=== PATIENT | female | born 1945 | race Caucasian/White ===

== ENCOUNTER 2017-04-20 08:07 | Emergency (ER) | payer OTHER ==
[~2017-04-20] VITALS: Ht 152.4 cm; Wt 79.5 kg
[~2017-04-20 08:07] MED LIST: ADVAIR 250/501 DISK IH; ALBUTEROL; ALPRAZOLAM0.25 MG PO; AMLODIPINE BESY10 MG PO; AMLODIPINE BESYL5 MG PO; AMOXICILLIN500 MG PO; ARTIFICIAL TEAR15 M1 BOTH EYES; ARTIFICIAL TEAR15 M4 BOTH EYES; ARTIFICIAL TEAR15 M6 BOTH EYES; ARTIFICIAL TEARS BOTH EYES; ASPIR-LOW81 MG PO; ASPIRIN E.C.81 M1 PO; ASPIRIN81 M1 PO; AUGMENTIN875 MG PO; AZITHROMYCIN500 M1 PO; BABY ASPIRIN81 M1 PO; BENTYL20 MG PO; CLEOCIN300 MG PO; CLINDAMYCIN HC300 MG PO; COLACE100 MG PO; COZAAR25 MG PO; Colace PO; DEXPAK1.5 M2 PO; DILAUDID4 MG PO; Ecotrin PO; FLOVENT 22120 INHALA; FLOVENT 22120 INHALA IH; Flexeril PO; Flovent 220 mcg IH; GLIPIZIDE5 MG PO; GLUCOPHAGE1000 MG PO; GLUCOTROL5 MG PO; GLYBURIDE MICRON6 MG PO; LANTUS 3 M100 UNITS/ PO; LANTUS 3 M100 UNITS/ SC; LANTUS 3 M100 UNITS1 SC; LEVEMIR FL100 UNIT/1 SC; LEVEMIR FL100 UNITS/ SC; LEVEMIR100 UNIT/2 SC; LO-DOSE ASPIRIN81 M2 PO; LOTRISONE15 GM TP; LOW DOSE ASPIRI81 M2 PO; MOTRIN100 MG PO; NEXIUM20 MG; NEXIUM20 MG PO; NEXIUM40 MG PO; NORVASC10 MG PO; NORVASC5 MG PO; NOVOLOG 10100 UNITS/ SC; NOVOLOG MI100 UNIT/2 SC; NOVOLOG MI100 UNIT/2 SQ; NOVOLOG PE100 UNITS/ SC; OMEPRAZOLE40 M1 PO; Oscal 500 w/Vitamin PO; PREDNISONE10 MG PO; PREDNISONE20 MG PO; PREDNISONE50 MG PO; PRESERVISIO1 CAPSULE PO; PRESERVISION A1 EAC1; PRESERVISION A1 EACH PO; PRESERVISION S1 EACH PO; PRILOSEC40 MG PO; PROAIR HFA8.5 GM IH; PROVENTIL,2.5 MG/3 M IH; Proventil,Ventolin H IH; SEREVENT DISKU50 MCG; SEREVENT DISKU50 MCG IH; SIMVASTATIN40 MG PO; SINGULAIR10 MG PO; STOOL SOFTENER100 MG PO; STOOL SOFTENER50 MG PO; Singulair PO; THEO-DUR,THEOC200 MG PO; TRAMADOL HCL50 MG PO; TYLENOL REGULA325 MG PO; VASOTEC2.5 MG PO; VENTOLIN HFA18 GM; VENTOLIN HFA18 GM IH; XANAX0.125 MG PO; XANAX0.25 MG PO; ZESTRIL,PRINIVIL5 MG PO; ZITHROMAX Z-PA250 MG PO; ZOCOR20 MG PO; ZOCOR40 MG PO; Zocor PO; predniSONE PO
[2017-04-20 08:59] LABS: HEMATOCRIT 43.2 % (36.0-46.0); MCH 25.7 PG (29.0-34.0); MCHC 31.5 G/DL (30.0-36.0); MCV 81.7 FL (83-99); MEAN PLAT.VOLUME 9.1 uM^3 (9.5-12.4); PLATELET COUNT 287 K/uL (156-360); RBC DIS.WIDTH-CV 14.5 % (11.8-14.6); RBC DIS.WIDTH-SD 42.9 % (39-53); RED BLOOD COUNT 5.29 M/uL (3.80-5.20); WHITE BLOOD COUNT 7.1 K/uL (4.1-10.2)
[2017-04-20 09:09] LABS: CHLORIDE 101 mEq/L (99-109); POTASSIUM 4.3 mEq/L (3.7-5.4); SODIUM 137 mEq/L (136-147)
[2017-04-20 09:11] LABS: GLUCOSE 241 mg/dL (70-99)
[2017-04-20 09:12] LABS: ANION GAP 9 MEQ/L (2-14)
[2017-04-20 09:15] LABS: GFR ESTIMATE (CALCULATED) > 59 mL/min/
[2017-04-20 09:16] LABS: UREA NITROGEN (BUN) 11 mg/dL (9-23)
[2017-04-20] MEDS ORDERED: MUCUS ER600 MG PO (10:42)
[2017-04-20] MEDS ORDERED: ZYRTEC10 M3 PO (10:42)
[2017-04-20] MEDS ORDERED: ROBITUSSIN DM118 ML PO (10:42)
[2017-04-20 11:02] VITALS: BP 133/50
== END 2017-04-20 11:03 | disposition home or self-care (01) ==
LOC: EME 08:07
PROVIDERS: Nurse Practitioner Family
DX: R51 Headache (principal); J45.909 Unspecified asthma, uncomplicated; E11.65 Type 2 diabetes mellitus with hyperglycemia; J44.9 Chronic obstructive pulmonary disease, unspecified; I48.91 Unspecified atrial fibrillation; I50.9 Heart failure, unspecified; I10 Essential (primary) hypertension; K21.9 Gastro-esophageal reflux disease without esophagitis; F32.9 Major depressive disorder, single episode, unspecified; Z86.73 Personal history of transient ischemic attack (TIA), and cerebral infarction without residual deficits; I25.10 Atherosclerotic heart disease of native coronary artery without angina pectoris; Z85.118 Personal history of other malignant neoplasm of bronchus and lung; Z90.2 Acquired absence of lung [part of]; Z87.891 Personal history of nicotine dependence; Z79.4 Long term (current) use of insulin; Z79.82 Long term (current) use of aspirin
CPT/HCPCS: 71020; 80048; 85027; 93005; 94640; 99281; 99285; J1200; J1885; J2765; J7040

== ENCOUNTER 2017-10-28 09:41 | Emergency (ER) | payer OTHER ==
[~2017-10-28] VITALS: Ht 152.4 cm; Wt 79.0 kg
[~2017-10-28 09:41] MED LIST changes: +MUCUS ER600 MG PO; +ROBITUSSIN DM118 ML PO; +ZYRTEC10 M3 PO
[2017-10-28 10:20] LABS: HEMATOCRIT 41.8 % (36.0-46.0); MCH 26.6 PG (29.0-34.0); MCHC 32.5 G/DL (30.0-36.0); MCV 81.6 FL (83-99); MEAN PLAT.VOLUME 9.3 uM^3 (9.5-12.4); PLATELET COUNT 285 K/uL (156-360); RBC DIS.WIDTH-CV 14.1 % (11.8-14.6); RBC DIS.WIDTH-SD 41.5 % (39-53); RED BLOOD COUNT 5.12 M/uL (3.80-5.20); WHITE BLOOD COUNT 5.7 K/uL (4.1-10.2)
[2017-10-28 10:41] LABS: TROP-I INTERPRETATION NEGATIVE; TROPONIN-I < 0.01 ng/mL (0.0-0.30)
[2017-10-28 10:45] LABS: ANION GAP 10 MEQ/L (2-14); CHLORIDE 102 MEQ/L (99-109); POTASSIUM 3.3 MEQ/L (3.7-5.4); SAMPLE HEMOLYSIS CHECK 0; SAMPLE ICTERIC CHECK 0; SAMPLE LIPEMIA CHECK 0; SODIUM 140 MEQ/L (136-147)
[2017-10-28 10:50] LABS: GFR ESTIMATE (CALCULATED) > 59 mL/min/; GLUCOSE 118 mg/dL (70-99); UREA NITROGEN (BUN) 15 mg/dL (9-23)
[2017-10-28 11:34] LABS: ADD MIUA? YES; BILIRUBIN NEGATIVE; BLOOD NEGATIVE; COLOR YELLOW ((YELLOW)); GLUCOSE (STRIP) NEGATIVE; KETONES NEGATIVE; LEUKOCYTES MODERATE; NITRITE NEGATIVE; PROTEIN (STRIP) NEGATIVE; SPECIFIC GRAVITY 1.023 (1.000-1.030)
[2017-10-28 11:51] LABS: BACTERIA RARE /HPF; EPITHELIAL CELLS RARE /HPF; HYALINE CASTS 0-5 /LPF; MUCUS 1+ /LPF; RED BLOOD CELLS 0-5 /HPF (0-5); UCUL ADDED? YES; WHITE BLOOD CELLS TNTC /HPF (0-5)
[2017-10-28 15:00] LABS: TROP-I INTERPRETATION NEGATIVE; TROPONIN-I < 0.01 ng/mL (0.0-0.30)
[2017-10-28] MEDS ORDERED: KEFLEX500 MG PO (16:38)
[2017-10-28] MEDS ORDERED: PREDNISONE20 MG PO (16:38)
[2017-10-28] MEDS ORDERED: VENTOLIN HFA18 GM IH (16:54)
[2017-10-28 17:06] VITALS: BP 122/81
== END 2017-10-28 17:06 | disposition home or self-care (01) ==
LOC: EME 09:41
PROVIDERS: Emergency Medicine
DX: J44.1 Chronic obstructive pulmonary disease with (acute) exacerbation (principal); N39.0 Urinary tract infection, site not specified; R42 Dizziness and giddiness; R11.2 Nausea with vomiting, unspecified; R19.7 Diarrhea, unspecified; Z85.118 Personal history of other malignant neoplasm of bronchus and lung; Z86.73 Personal history of transient ischemic attack (TIA), and cerebral infarction without residual deficits; Z87.442 Personal history of urinary calculi; I10 Essential (primary) hypertension; E11.9 Type 2 diabetes mellitus without complications; Z79.4 Long term (current) use of insulin; Z79.82 Long term (current) use of aspirin; Z88.2 Allergy status to sulfonamides; Z88.1 Allergy status to other antibiotic agents; Z99.81 Dependence on supplemental oxygen; Z87.891 Personal history of nicotine dependence
CPT/HCPCS: 71020; 80048; 81003; 84484; 85027; 87077; 87086; 87186; 93005; 94640; 94640 76; 99281; 99285; J7030; J7512

== ENCOUNTER 2017-11-18 16:50 | Emergency (ER) | payer OTHER ==
[~2017-11-18] VITALS: Ht 152.4 cm; Wt 77.1 kg
[~2017-11-18 16:50] MED LIST changes: +KEFLEX500 MG PO
[2017-11-18 17:17] LABS: HEMATOCRIT 40.6 % (36.0-46.0); HEMOGLOBIN 13.2 G/DL (11.9-15.5); MCH 26.6 PG (29.0-34.0); MCHC 32.5 G/DL (30.0-36.0); MCV 81.7 FL (83-99); PLATELET COUNT 260 K/uL (156-360); RBC DIS.WIDTH-CV 14.2 % (11.8-14.6); RBC DIS.WIDTH-SD 41.8 % (39-53); RED BLOOD COUNT 4.97 M/uL (3.80-5.20); WHITE BLOOD COUNT 6.2 K/uL (4.1-10.2)
[2017-11-18 17:31] LABS: CHLORIDE 104 mEq/L (99-109); POTASSIUM 3.2 mEq/L (3.7-5.4); SODIUM 141 mEq/L (136-147)
[2017-11-18 17:33] LABS: GLUCOSE 171 mg/dL (70-99)
[2017-11-18 17:37] LABS: CREATININE 0.7 mg/dL (0.6-1.3); GFR ESTIMATE (CALCULATED) > 59 mL/min/
[2017-11-18 17:38] LABS: UREA NITROGEN (BUN) 14 mg/dL (9-23)
[2017-11-18 17:38] LABS: APPEARANCE CLEAR ((CLEAR)); BILIRUBIN NEGATIVE; BLOOD SMALL; COLOR YELLOW ((YELLOW)); GLUCOSE (STRIP) NEGATIVE; KETONES NEGATIVE; LEUKOCYTES LARGE; NITRITE NEGATIVE; PROTEIN (STRIP) NEGATIVE; SPECIFIC GRAVITY 1.009 (1.000-1.030); UROBILINOGEN 0.2 MG/DL (0.2-1.0)
[2017-11-18 17:43] LABS: BACTERIA 2+ /HPF; EPITHELIAL CELLS RARE /HPF; MUCUS TRACE /LPF; RED BLOOD CELLS NONE SEEN /HPF (0-5); UCUL ADDED? YES; WHITE BLOOD CELLS TNTC /HPF (0-5)
[2017-11-18] MEDS ORDERED: KEFLEX500 MG PO (20:02)
[2017-11-18 20:17] VITALS: BP 150/73
== END 2017-11-18 20:20 | disposition home or self-care (01) ==
LOC: EME 16:50
DX: N39.0 Urinary tract infection, site not specified (principal); B96.4 Proteus (mirabilis) (morganii) as the cause of diseases classified elsewhere; J44.9 Chronic obstructive pulmonary disease, unspecified; R11.2 Nausea with vomiting, unspecified; R19.7 Diarrhea, unspecified; I10 Essential (primary) hypertension; E11.9 Type 2 diabetes mellitus without complications; Z79.4 Long term (current) use of insulin; Z87.442 Personal history of urinary calculi; Z87.440 Personal history of urinary (tract) infections; Z88.1 Allergy status to other antibiotic agents; Z88.2 Allergy status to sulfonamides; Z85.118 Personal history of other malignant neoplasm of bronchus and lung; Z90.2 Acquired absence of lung [part of]; Z99.81 Dependence on supplemental oxygen; Z86.73 Personal history of transient ischemic attack (TIA), and cerebral infarction without residual deficits; Z79.82 Long term (current) use of aspirin; Z87.891 Personal history of nicotine dependence
CPT/HCPCS: 71046; 80048; 81003; 85027; 87077; 87086; 87186; 99281; 99283

== ENCOUNTER 2017-12-11 11:16 | Emergency (ER) | payer OTHER ==
[~2017-12-11] VITALS: Ht 152.4 cm; Wt 85.2 kg
[2017-12-11 12:18] LABS: BASOPHIL (%) 0.3 % (0-1); EOSINOPHIL (%) 0.7 % (0-5); EOSINOPHIL COUNT 0.1 K/uL (0-0.3); HEMATOCRIT 38.6 % (36.0-46.0); HEMOGLOBIN 12.6 G/DL (11.9-15.5); IMMATURE GRANULOCYTE (%) 0.3 % (0.0-0.7); LYMPHOCYTE COUNT 2.8 K/uL (1.0-2.8); MCH 26.5 PG (29.0-34.0); MCHC 32.6 G/DL (30.0-36.0); MCV 81.3 FL (83-99); MONOCYTE (%) 6.2 % (3-12); MONOCYTE COUNT 0.7 K/uL (0-0.8); NEUTROPHIL (%) 68.5 % (45-76); PLATELET COUNT 288 K/uL (156-360); RBC DIS.WIDTH-CV 14.1 % (11.8-14.6); RBC DIS.WIDTH-SD 41.5 % (39-53); RED BLOOD COUNT 4.75 M/uL (3.80-5.20); WHITE BLOOD COUNT 11.7 K/uL (4.1-10.2)
[2017-12-11 12:28] LABS: CHLORIDE 105 mEq/L (99-109); POTASSIUM 3.1 mEq/L (3.7-5.4); SODIUM 139 mEq/L (136-147)
[2017-12-11 12:29] LABS: GLUCOSE 249 mg/dL (70-99)
[2017-12-11 12:33] LABS: CREATININE 0.7 mg/dL (0.6-1.3); GFR ESTIMATE (CALCULATED) > 59 mL/min/
[2017-12-11 12:34] LABS: UREA NITROGEN (BUN) 16 mg/dL (9-23)
[2017-12-11 12:39] LABS: TROP-I INTERPRETATION NEGATIVE; TROPONIN-I < 0.01 ng/mL (0.0-0.30)
[2017-12-11 14:33] LABS: TROP-I INTERPRETATION NEGATIVE; TROPONIN-I 0.01 ng/mL (0.0-0.30)
[2017-12-11] MEDS ORDERED: ZITHROMAX Z-PA250 MG PO (14:42)
[2017-12-11] MEDS ORDERED: PREDNISONE50 MG PO (14:42)
[2017-12-11 15:22] VITALS: BP 141/69
[2017-12-12] MEDS ORDERED: TRIMETHOPRIM100 MG PO (07:56)
[2017-12-12] MEDS ORDERED: OMEPRAZOLE40 M1 PO (09:45)
[2017-12-12] MEDS ORDERED: NOVOLOG 10100 UNITS/ SC (10:26)
== END 2017-12-11 15:37 | disposition home or self-care (01) ==
LOC: EME 11:16
PROVIDERS: Emergency Medicine
DX: J44.1 Chronic obstructive pulmonary disease with (acute) exacerbation (principal); J44.0 Chronic obstructive pulmonary disease with (acute) lower respiratory infection; J20.9 Acute bronchitis, unspecified; Z87.891 Personal history of nicotine dependence; Z88.7 Allergy status to serum and vaccine; Z88.1 Allergy status to other antibiotic agents; Z88.5 Allergy status to narcotic agent; Z88.2 Allergy status to sulfonamides; Z91.041 Radiographic dye allergy status; Z79.82 Long term (current) use of aspirin; Z99.81 Dependence on supplemental oxygen; I50.9 Heart failure, unspecified; I11.0 Hypertensive heart disease with heart failure; H35.30 Unspecified macular degeneration; Z86.73 Personal history of transient ischemic attack (TIA), and cerebral infarction without residual deficits; Z85.118 Personal history of other malignant neoplasm of bronchus and lung; K44.9 Diaphragmatic hernia without obstruction or gangrene; K21.9 Gastro-esophageal reflux disease without esophagitis; I25.10 Atherosclerotic heart disease of native coronary artery without angina pectoris; F41.9 Anxiety disorder, unspecified; F32.9 Major depressive disorder, single episode, unspecified
CPT/HCPCS: 71045; 80048; 84484; 85025; 87502; 93005; 94640; 99281; 99284; J2930

== ENCOUNTER 2017-12-11 22:32 | Inpatient (IN) | payer OTHER ==
[~2017-12-11] VITALS: Ht 152.4 cm; Wt 77.7 kg
[2017-12-12 00:57] LABS: BASOPHIL (%) 0.1 % (0-1); EOSINOPHIL (%) 0 % (0-5); HEMATOCRIT 40.3 % (36.0-46.0); HEMOGLOBIN 12.9 G/DL (11.9-15.5); IMMATURE GRANULOCYTE (%) 0.4 % (0.0-0.7); LYMPHOCYTE (%) 13.7 % (15-42); MCH 26.2 PG (29.0-34.0); MCV 81.7 FL (83-99); MONOCYTE (%) 0.5 % (3-12); NEUTROPHIL (%) 85.3 % (45-76); NEUTROPHIL COUNT 6.4 K/uL (1.8-6.4); PLATELET COUNT 326 K/uL (156-360); RBC DIS.WIDTH-CV 14.2 % (11.8-14.6); RBC DIS.WIDTH-SD 41.5 % (39-53); RED BLOOD COUNT 4.93 M/uL (3.80-5.20); WHITE BLOOD COUNT 7.5 K/uL (4.1-10.2)
[2017-12-12 01:04] LABS: CHLORIDE 102 mEq/L (99-109); POTASSIUM 3.5 mEq/L (3.7-5.4); SODIUM 136 mEq/L (136-147)
[2017-12-12 01:10] LABS: CREATININE 0.9 mg/dL (0.6-1.3); GFR ESTIMATE (CALCULATED) > 59 mL/min/
[2017-12-12 01:11] LABS: UREA NITROGEN (BUN) 15 mg/dL (9-23)
[2017-12-12 01:13] LABS: GLUCOSE 493 mg/dL (70-99)
[2017-12-12 01:17] LABS: TROP-I INTERPRETATION NEGATIVE; TROPONIN-I 0.02 ng/mL (0.0-0.30)
[2017-12-12 01:45] LABS: BASE EXCESS -7.7 mEq/L (-3 to +3); BICARBONATE 16.6 mEq/L (22-26); CARBOXY HGB 1.9 % (0-5); COMMENTS - BLOOD GASES C+A+; DEVICE NC; METHEMOGLOBIN 1.8 % (0-1.5); O2 FLOW 2 L/MIN; PCO2 30 mm Hg (35-45); PO2 103 mm Hg (80-100); SITE RR; pH 7.35 (7.35-7.45)
[2017-12-12 03:52] LABS: CHLORIDE 108 mEq/L (99-109); POTASSIUM 3.5 mEq/L (3.7-5.4); SODIUM 137 mEq/L (136-147)
[2017-12-12 03:54] LABS: GLUCOSE 341 mg/dL (70-99)
[2017-12-12 03:58] LABS: CREATININE 0.7 mg/dL (0.6-1.3); GFR ESTIMATE (CALCULATED) > 59 mL/min/
[2017-12-12 03:59] LABS: UREA NITROGEN (BUN) 11 mg/dL (9-23)
[2017-12-12] MEDS ORDERED: TRIMETHOPRIM100 MG PO (07:56)
[2017-12-12 08:49] VITALS: BP 147/67
[2017-12-12] MEDS ORDERED: OMEPRAZOLE40 M1 PO (09:45)
[2017-12-12] MEDS ORDERED: NOVOLOG 10100 UNITS/ SC (10:26)
[2017-12-12 10:45] LABS: BASOPHIL (%) 0.1 % (0-1); EOSINOPHIL (%) 0 % (0-5); HEMOGLOBIN 12.8 G/DL (11.9-15.5); IMMATURE GRANULOCYTE (%) 0.7 % (0.0-0.7); LYMPHOCYTE (%) 13.1 % (15-42); LYMPHOCYTE COUNT 1.8 K/uL (1.0-2.8); MCH 26.5 PG (29.0-34.0); MCV 82.8 FL (83-99); MONOCYTE (%) 3.3 % (3-12); MONOCYTE COUNT 0.4 K/uL (0-0.8); NEUTROPHIL (%) 82.8 % (45-76); PLATELET COUNT 308 K/uL (156-360); RBC DIS.WIDTH-CV 14.2 % (11.8-14.6); RBC DIS.WIDTH-SD 42.6 % (39-53); RED BLOOD COUNT 4.83 M/uL (3.80-5.20); WHITE BLOOD COUNT 13.3 K/uL (4.1-10.2)
[2017-12-12 11:07] LABS: CREATININE 0.5 MG/DL (0.6-1.3); GFR ESTIMATE (CALCULATED) > 59 mL/min/; GLUCOSE 325 mg/dL (70-99); SODIUM 137 MEQ/L (136-147); UREA NITROGEN (BUN) 9 mg/dL (9-23)
[2017-12-12 11:08] LABS: CHLORIDE 105 MEQ/L (99-109)
[2017-12-12 11:12] LABS: POTASSIUM 4.3 MEQ/L (3.7-5.4)
[2017-12-12 11:21] LABS: TROP-I INTERPRETATION NEGATIVE; TROPONIN-I 0.02 ng/mL (0.0-0.30)
[2017-12-12 12:19] VITALS: BP 143/66
[2017-12-12 16:23] VITALS: BP 142/66
[2017-12-12 16:29] LABS: TROP-I INTERPRETATION NEGATIVE; TROPONIN-I 0.02 ng/mL (0.0-0.30)
[2017-12-12 19:57] VITALS: BP 126/72
[2017-12-12 23:46] VITALS: BP 130/64
[2017-12-13 03:54] VITALS: BP 140/70
[2017-12-13 06:06] LABS: BASOPHIL (%) 0.1 % (0-1); EOSINOPHIL (%) 0.1 % (0-5); HEMATOCRIT 37.1 % (36.0-46.0); HEMOGLOBIN 11.7 G/DL (11.9-15.5); IMMATURE GRANULOCYTE (%) 0.7 % (0.0-0.7); LYMPHOCYTE (%) 32.1 % (15-42); LYMPHOCYTE COUNT 4.5 K/uL (1.0-2.8); MCH 26.2 PG (29.0-34.0); MCHC 31.5 G/DL (30.0-36.0); MONOCYTE (%) 5.2 % (3-12); MONOCYTE COUNT 0.7 K/uL (0-0.8); NEUTROPHIL (%) 61.8 % (45-76); NEUTROPHIL COUNT 8.6 K/uL (1.8-6.4); PLATELET COUNT 293 K/uL (156-360); RBC DIS.WIDTH-CV 14.4 % (11.8-14.6); RBC DIS.WIDTH-SD 43.4 % (39-53); RED BLOOD COUNT 4.47 M/uL (3.80-5.20); WHITE BLOOD COUNT 13.9 K/uL (4.1-10.2)
[2017-12-13 06:24] LABS: CHLORIDE 104 MEQ/L (99-109); CREATININE 0.5 MG/DL (0.6-1.3); GFR ESTIMATE (CALCULATED) > 59 mL/min/; GLUCOSE 166 mg/dL (70-99); POTASSIUM 4.5 MEQ/L (3.7-5.4); SODIUM 138 MEQ/L (136-147); UREA NITROGEN (BUN) 12 mg/dL (9-23)
[2017-12-13 08:44] VITALS: BP 150/77
[2017-12-13] MEDS ORDERED: NORVASC10 MG PO (11:59)
[2017-12-13] MEDS ORDERED: GLUCOTROL5 MG PO (12:00)
[2017-12-13] MEDS ORDERED: ZYRTEC10 M3 PO (12:04)
[2017-12-13] MEDS ORDERED: NOVOLOG PE100 UNITS/ SC (12:06)
[2017-12-13 16:34] VITALS: BP 146/68
[2017-12-14 00:23] VITALS: BP 137/72
[2017-12-14 08:00] VITALS: BP 159/88
[2017-12-14 16:17] VITALS: BP 143/68
[2017-12-14 23:13] VITALS: BP 134/61
[2017-12-15 07:53] VITALS: BP 146/85
[2017-12-15 10:13] LABS: BASOPHIL (%) 0.3 % (0-1); EOSINOPHIL (%) 0.8 % (0-5); EOSINOPHIL COUNT 0.1 K/uL (0-0.3); HEMATOCRIT 44.5 % (36.0-46.0); HEMOGLOBIN 14.6 G/DL (11.9-15.5); IMMATURE GRANULOCYTE (%) 0.8 % (0.0-0.7); LYMPHOCYTE (%) 33.9 % (15-42); LYMPHOCYTE COUNT 4.8 K/uL (1.0-2.8); MCH 26.9 PG (29.0-34.0); MCHC 32.8 G/DL (30.0-36.0); MCV 82.1 FL (83-99); MONOCYTE (%) 6.3 % (3-12); MONOCYTE COUNT 0.9 K/uL (0-0.8); NEUTROPHIL (%) 57.9 % (45-76); NEUTROPHIL COUNT 8.2 K/uL (1.8-6.4); PLATELET COUNT 362 K/uL (156-360); RBC DIS.WIDTH-CV 14.4 % (11.8-14.6); RBC DIS.WIDTH-SD 42.5 % (39-53); RED BLOOD COUNT 5.42 M/uL (3.80-5.20); WHITE BLOOD COUNT 14.2 K/uL (4.1-10.2)
[2017-12-15 10:23] LABS: CHLORIDE 98 MEQ/L (99-109); CREATININE 0.6 MG/DL (0.6-1.3); GFR ESTIMATE (CALCULATED) > 59 mL/min/; GLUCOSE 174 mg/dL (70-99); POTASSIUM 4.1 MEQ/L (3.7-5.4); SODIUM 139 MEQ/L (136-147); UREA NITROGEN (BUN) 14 mg/dL (9-23)
[2017-12-15 16:00] VITALS: BP 129/88
[2017-12-15 18:31] LABS: APPEARANCE CLEAR ((CLEAR)); BILIRUBIN NEGATIVE; BLOOD NEGATIVE; COLOR STRAW ((YELLOW)); GLUCOSE (STRIP) 150; KETONES NEGATIVE; LEUKOCYTES NEGATIVE; NITRITE NEGATIVE; PROTEIN (STRIP) NEGATIVE; SPECIFIC GRAVITY 1.006 (1.000-1.030); UROBILINOGEN 0.2 MG/DL (0.2-1.0)
[2017-12-16 01:15] VITALS: BP 142/65
[2017-12-16 05:10] VITALS: BP 155/80
[2017-12-16 08:00] VITALS: BP 182/88
[2017-12-16] MEDS ORDERED: PREDNISONE5 MG PO (10:22)
[2017-12-16] MEDS ORDERED: BENZONATATE100 MG PO (10:22)
[2017-12-16] MEDS ORDERED: MUCINEX600 MG PO (10:22)
[2017-12-16 11:09] VITALS: BP 156/84
== END 2017-12-16 14:50 | disposition home health service (06) | DRG 191 ==
LOC: EME 22:32 → EDOF 12-12 04:55 → 4SOUTH 12-12 04:55 → EDOF 12-12 04:55 → ENRESERV 12-12 04:56 → 4SOUTH 12-12 07:49
PROVIDERS: Emergency Medicine; Hospitalist; Internal Medicine; Physician Assistant Medical
DX: J44.1 Chronic obstructive pulmonary disease with (acute) exacerbation (principal); J96.11 Chronic respiratory failure with hypoxia; F33.9 Major depressive disorder, recurrent, unspecified; E87.6 Hypokalemia; I50.9 Heart failure, unspecified; T38.0X5A Adverse effect of glucocorticoids and synthetic analogues, initial encounter; K21.9 Gastro-esophageal reflux disease without esophagitis; R23.4 Changes in skin texture; I11.0 Hypertensive heart disease with heart failure; G89.29 Other chronic pain; I25.10 Atherosclerotic heart disease of native coronary artery without angina pectoris; E11.65 Type 2 diabetes mellitus with hyperglycemia; F41.9 Anxiety disorder, unspecified; K52.9 Noninfective gastroenteritis and colitis, unspecified; Z79.4 Long term (current) use of insulin; Z79.82 Long term (current) use of aspirin; Z87.891 Personal history of nicotine dependence; Z85.118 Personal history of other malignant neoplasm of bronchus and lung; Z86.73 Personal history of transient ischemic attack (TIA), and cerebral infarction without residual deficits; Z87.442 Personal history of urinary calculi; Z99.81 Dependence on supplemental oxygen; Z90.2 Acquired absence of lung [part of]; Z91.013 Allergy to seafood; Z91.041 Radiographic dye allergy status; Z88.5 Allergy status to narcotic agent; Z88.2 Allergy status to sulfonamides
CPT/HCPCS: 36600; 71045; 71046; 71250; 78582; 80048; 80048 91; 81003; 82803; 82948; 84484; 85025; 85025 91; 87070; 87205; 87449; 87502; 93005; 94640; 94640 76; 94799; 99202; 99281; 99284; 99285; A9540; A9567; G0378; J0456; J1200; J1650; J1815; J2930; J7030; J7512

== ENCOUNTER 2018-01-30 17:56 | Emergency (ER) | payer OTHER ==
[~2018-01-30] VITALS: Ht 152.4 cm; Wt 80.6 kg
[~2018-01-30 17:56] MED LIST changes: +BENZONATATE100 MG PO; +MUCINEX600 MG PO; +PREDNISONE5 MG PO; +TRIMETHOPRIM100 MG PO
[2018-01-30 19:53] LABS: HEMATOCRIT 40.4 % (36.0-46.0); HEMOGLOBIN 13.3 G/DL (11.9-15.5); MCH 26.8 PG (29.0-34.0); MCHC 32.9 G/DL (30.0-36.0); MCV 81.3 FL (83-99); PLATELET COUNT 299 K/uL (156-360); RBC DIS.WIDTH-CV 14.1 % (11.8-14.6); RBC DIS.WIDTH-SD 41.4 % (39-53); RED BLOOD COUNT 4.97 M/uL (3.80-5.20); WHITE BLOOD COUNT 8.1 K/uL (4.1-10.2)
[2018-01-30 20:03] LABS: ALBUMIN 3.9 g/dL (3.2-4.8); CHLORIDE 104 mEq/L (99-109); POTASSIUM 3.6 mEq/L (3.7-5.4); SODIUM 139 mEq/L (136-147)
[2018-01-30 20:06] LABS: GLUCOSE 234 mg/dL (70-99); TOTAL PROTEIN 6.8 g/dL (6.4-8.3)
[2018-01-30 20:08] LABS: TOTAL BILIRUBIN 0.4 mg/dL (0.0-1.0)
[2018-01-30 20:09] LABS: ALKALINE PHOSPHATASE 98 IU/L (3-129); CREATININE 0.7 mg/dL (0.6-1.3); GFR ESTIMATE (CALCULATED) > 59 mL/min/
[2018-01-30 20:10] LABS: UREA NITROGEN (BUN) 9 mg/dL (9-23)
[2018-01-30 20:11] LABS: AST (GOT) 20 IU/L (2-34)
[2018-01-30 20:12] LABS: ALT (GPT) 23 IU/L (3-49)
[2018-01-30 20:25] LABS: APPEARANCE CLEAR ((CLEAR)); BILIRUBIN NEGATIVE; BLOOD MODERATE; COLOR COLORLESS ((YELLOW)); GLUCOSE (STRIP) 150; KETONES NEGATIVE; LEUKOCYTES NEGATIVE; NITRITE NEGATIVE; PROTEIN (STRIP) NEGATIVE; SPECIFIC GRAVITY 1.003 (1.000-1.030); UROBILINOGEN 0.2 MG/DL (0.2-1.0)
[2018-01-30 20:30] LABS: BACTERIA RARE /HPF; EPITHELIAL CELLS RARE /HPF; MUCUS NONE SEEN /LPF; RED BLOOD CELLS NONE SEEN /HPF (0-5); UCUL ADDED? NO; WHITE BLOOD CELLS 0-5 /HPF (0-5)
[2018-01-30] MEDS ORDERED: MOTRIN600 MG PO (23:06)
[2018-01-30] MEDS ORDERED: ZOFRAN4 MG PO (23:06)
[2018-01-30] MEDS ORDERED: ULTRAM50 MG PO (23:06)
[2018-01-30 23:48] VITALS: BP 152/77
== END 2018-01-30 23:49 | disposition home or self-care (01) ==
LOC: EME 17:56
DX: N13.2 Hydronephrosis with renal and ureteral calculous obstruction (principal); K76.89 Other specified diseases of liver; R16.0 Hepatomegaly, not elsewhere classified; N28.1 Cyst of kidney, acquired; I10 Essential (primary) hypertension; E11.9 Type 2 diabetes mellitus without complications; Z79.4 Long term (current) use of insulin; J44.9 Chronic obstructive pulmonary disease, unspecified; Z87.442 Personal history of urinary calculi; Z86.73 Personal history of transient ischemic attack (TIA), and cerebral infarction without residual deficits; Z85.118 Personal history of other malignant neoplasm of bronchus and lung; Z99.81 Dependence on supplemental oxygen; Z79.82 Long term (current) use of aspirin; Z88.2 Allergy status to sulfonamides; Z87.891 Personal history of nicotine dependence
CPT/HCPCS: 74176; 80053; 81003; 85027; 99281; 99284

== ENCOUNTER → 2018-02-03 | Outpatient (CLI) | payer MEDICARE, OTHER ==
[~2018-02-03] MED LIST changes: +MOTRIN600 MG PO; +ULTRAM50 MG PO; +ZOFRAN4 MG PO
== END | disposition home or self-care (01) ==
LOC: CDC 12:08
DX: Z01.810 Encounter for preprocedural cardiovascular examination (principal); R94.31 Abnormal electrocardiogram [ECG] [EKG]
CPT/HCPCS: 93000

== ENCOUNTER 2018-06-19 15:58 | Emergency (ER) | payer OTHER ==
[~2018-06-19] VITALS: Ht 152.4 cm; Wt 77.2 kg
[2018-06-19 16:01] VITALS: BP 113/78
[2018-06-19] MEDS ORDERED: TRAMADOL HCL50 MG PO (17:49)
== END 2018-06-19 19:41 | disposition home or self-care (01) ==
LOC: EME 15:58
DX: M54.5 Low back pain (principal); G89.29 Other chronic pain; R06.2 Wheezing; J44.9 Chronic obstructive pulmonary disease, unspecified; Z99.81 Dependence on supplemental oxygen; E11.9 Type 2 diabetes mellitus without complications; Z79.4 Long term (current) use of insulin; I11.0 Hypertensive heart disease with heart failure; I50.9 Heart failure, unspecified; F32.9 Major depressive disorder, single episode, unspecified; F41.9 Anxiety disorder, unspecified; I25.10 Atherosclerotic heart disease of native coronary artery without angina pectoris; K21.9 Gastro-esophageal reflux disease without esophagitis; Z85.118 Personal history of other malignant neoplasm of bronchus and lung; Z86.73 Personal history of transient ischemic attack (TIA), and cerebral infarction without residual deficits; Z87.442 Personal history of urinary calculi; Z79.82 Long term (current) use of aspirin; Z88.8 Allergy status to other drugs, medicaments and biological substances; Z88.2 Allergy status to sulfonamides; Z88.1 Allergy status to other antibiotic agents; Z87.891 Personal history of nicotine dependence
CPT/HCPCS: 72100; 94640